=== PATIENT | female | born 1985 | race Caucasian/White ===

== ENCOUNTER 2016-11-17 09:29 | Emergency (ER) | payer MEDICAID, OTHER ==
[2016-11-17 09:47] VITALS: BP 127/77
--- NOTE | 2016-11-17 10:28 | UC ---
General HPI - HPI Summary HPI Summary: Pt has recently moved back into the area, needs medication refills to last until her PCP appt at [facility] on 12/01/16. Has appt with [facility] on 11/24/16. Hx of 2 inpatient stays with behavioral health, treating anxiety, PTSD, fibromyalgia, insomnia, eating d/o. - History of Current Complaint Chief Complaint: UCMedRefill Stated Complaint: med refill Time Seen by Provider: 11/17/16 10:06 Hx Obtained From: Patient Onset/Duration: Gradual Onset - no current new symptoms Timing: Constant Current Severity: None Associated Signs & Symptoms: Positive: Other - Allergy/Home Medications Allergies/Adverse Reactions: Allergies Allergy/AdvReac Type Severity Reaction Status Date / Time No Known Allergies Allergy Verified 11/17/16 09:47 Home Medications: Home Medications Sertraline* [Zoloft*] 11/17/16 [History] traZODone TAB* [Desyrel TAB*] 11/17/16 [History] PMH/Surg Hx/FS Hx/Imm Hx Psychological History Of: Reports: Anxiety, Depression, Post Traumatic Stress Disorder - Surgical History Surgical History: None - Family History Known Family History: Positive: None - reviewed & noncontributory - Social History Alcohol Use: Occasionally Substance Use Type: None Smoking Status (MU): Former Smoker Review of Systems Constitutional: Negative Skin: Negative Eyes: Negative ENT: Negative Respiratory: Negative Cardiovascular: Negative Gastrointestinal: Negative Genitourinary: Negative Motor: Negative Neurovascular: Negative Musculoskeletal: Negative Neurological: Negative Psychological: Negative All Other Systems Reviewed And Are Negative: Yes Physical Exam Triage Information Reviewed: Yes Appearance: Well-Appearing, No Pain Distress, Well-Nourished Vital Signs: Initial Vital Signs Temp 99.3 F 11/17/16 09:36 Pulse 99 11/17/16 09:36 Resp 16 11/17/16 09:36 BP 127/77 11/17/16 09:36 Pulse Ox 97 11/17/16 09:36 Vital Signs Reviewed: Yes Eye Exam: Normal Eyes: Positive: Conjunctiva Clear ENT Exam: Normal ENT: Positive: Normal ENT inspection, Hearing grossly normal, Pharynx normal, TMs normal Dental Exam: Normal Neck exam: Normal Neck: Positive: Supple, Nontender, No Lymphadenopathy Respiratory Exam: Normal Respiratory: Positive: Chest non-tender, Lungs clear, Normal breath sounds, No respiratory distress Cardiovascular Exam: Normal Cardiovascular: Positive: RRR, No Murmur Musculoskeletal Exam: Normal Neurological Exam: Normal Neurological: Positive: Alert Psychological Exam: Normal Skin Exam: Normal Course/Dx - Differential Dx - Multi-Symptom Provider Diagnoses: Medication refill Discharge - Discharge Plan Condition: Stable Disposition: HOME Prescriptions: Cyclobenzaprine TAB* [Flexeril 10 MG TAB*] 10 mg PO TID PRN #30 tab PRN Reason: pain Gabapentin CAP(*) [Neurontin 300 CAP(*)] 600 mg PO TID #84 cap Sertraline* [Zoloft*] 100 mg PO DAILY #14 tab busPIRone TAB* [Buspar TAB*] 5 mg PO TID #42 tab traZODone TAB* [Desyrel TAB*] 100 mg PO BEDTIME #14 tab Patient Education Materials: Medicine Refill (ED) Referrals: Marilyn Flores MD [Primary Care Provider] - Additional Instructions: Please make every effort to keep your appointments with [facility] on 11/24/16 and [facility] on 12/01/16.
== END 2016-11-17 10:31 | disposition home or self-care (01) ==
LOC: UCEAST 09:29
DX: F41.8 Other specified anxiety disorders (principal); F43.10 Post-traumatic stress disorder, unspecified; X58.XXXA Exposure to other specified factors, initial encounter; Y93.9 Activity, unspecified; Y92.9 Unspecified place or not applicable; Z76.0 Encounter for issue of repeat prescription; Z87.891 Personal history of nicotine dependence
CPT/HCPCS: 99212; G0463

== ENCOUNTER 2017-04-28 16:57 | Emergency (ER) | payer MEDICAID, OTHER ==
[2017-04-28] MEDS ORDERED: Ondansetron INJ* 2 MG/ML VIAL IV ONE (18:13)
[2017-04-28] MEDS ORDERED: Acetaminophen TAB* 325 MG ONE (19:01)
[2017-04-28] MEDS ORDERED: Acetaminophen TAB* 325 MG PO ONE (19:02)
[2017-04-28 19:04] LABS: Hematocrit 39 % (35-47); Hemoglobin 13.4 g/dl (12.0-16.0); Mean Corpuscular HGB Conc 34 g/dl (31-36); Mean Corpuscular Hemoglobin 31 pg (27-31); Mean Corpuscular Volume 90 fL (80-97); Mean Platelet Volume 8 um3 (7.4-10.4); Red Blood Count 4.36 10^6/ul (4.0-5.4); Red Cell Distribution Width 14 % (10.5-15); White Blood Count 9.9 10^3/ul (3.5-10.8)
[2017-04-28] MEDS: NS 0.9% 1000 ML* 2,000 ML IV ONE (19:04)
[2017-04-28 19:10] VITALS: BP 143/96
[2017-04-28 19:19] LABS: ALT 25 U/L (7-52); AST 37 U/L (13-39); Albumin 4.1 g/dL (3.2-5.2); Alkaline Phosphatase 67 U/L (34-104); Anion Gap 7 mmol/L (2-11); BUN/Creatinine Ratio 9.5 (8-20); Blood Urea Nitrogen 9 mg/dL (6-24); CO2 Carbon Dioxide 27 mmol/L (22-32); Calcium 8.6 mg/dL (8.6-10.3); Chloride 99 mmol/L (101-111); EGFR African American 88.2 (>60); EGFR Non-African American 68.6 (>60); Globulin 2.3 g/dL (2-4); Glucose 116 mg/dL (70-100); Lipase < 10 U/L (11.0-82.0); Potassium 3.4 mmol/L (3.5-5.0); Sodium 133 mmol/L (133-145); Total Protein 6.4 g/dL (6.4-8.9)
--- NOTE | 2017-04-28 19:43 | RAD ---
HISTORY: Fever COMPARISONS: None VIEWS: 2: Frontal and lateral views of the chest. FINDINGS: CARDIOMEDIASTINAL SILHOUETTE: The cardiomediastinal silhouette is normal. ROJAS: The rojas are normal. PLEURA: The costophrenic angles are sharp. No pleural abnormalities are noted. LUNG PARENCHYMA: The lungs are clear. ABDOMEN: The upper abdomen is clear. There is no subphrenic gas. BONES AND SOFT TISSUES: No bone or soft tissue abnormalities are noted. OTHER: None. IMPRESSION: NO ACTIVE CARDIOPULMONARY DISEASE.
[2017-04-28] MEDS ORDERED: Iohexol 300* (CONTRAST) 10 ML SDV IV ONE (20:27)
--- NOTE | 2017-04-28 21:28 | RAD ---
CLINICAL HISTORY: Abdominal pain COMPARISON: None TECHNIQUE: Multiple contiguous axial CT scans were obtained of the abdomen and pelvis after the administration of intravenous contrast. Coronal and sagittal multiplanar reformations are submitted for review. Oral contrast was not administered. Delayed images were obtained through the abdomen and pelvis. FINDINGS: LUNG BASES: The lung bases are clear. LIVER: The liver is at the upper limits of normal in size BILE DUCTS: There is no intrahepatic or extrahepatic biliary dilatation. GALLBLADDER: The gallbladder is normal, without pericholecystic inflammatory change. PANCREAS: The pancreas is normal, without mass or ductal dilatation. SPLEEN: Normal in size and appearance. UPPER GI TRACT: Evaluation of the gastrointestinal tract is limited by incomplete gastric distention. The upper GI tract is unremarkable. SMALL BOWEL AND MESENTERY: The small bowel is normal in contour, course, and caliber. There is no obstruction or dilatation. COLON: The colon is normal in contour, course, caliber. There is no pericolonic inflammatory change. There is a tubular, vermiform, hollow viscus that is blind ending, and originates from the cecum, consistent with a normal appendix. There is no periappendiceal inflammatory change. This is best seen on axial image 58. ADRENALS: Normal bilaterally. KIDNEYS: The kidneys are normal in shape, size, contour, and axis. There is no hydronephrosis or nephrolithiasis. BLADDER: The bladder is smooth in contour. PELVIC ORGANS: There is small amount of free fluid within the pelvis. There is a small cystic lesion of the anterior wall of the lower vagina measuring approximately 1 cm in size best seen on axial image 77 and sagittal image 54. AORTA: The aorta is normal. IVC: Unremarkable LYMPH NODES: There is no lymphadenopathy by size criteria. ABDOMINAL WALL: There is no evidence for abdominal wall hernia. BONES AND SOFT TISSUES: Unremarkable OTHER: None IMPRESSION: 1. THE LIVER IS AT THE UPPER LIMITS OF NORMAL IN SIZE. 2. THERE IS A SMALL CYSTIC LESION OF THE ANTERIOR WALL OF THE VAGINA, POSSIBLY A ANAMIKA'S DUCT CYST, THOUGH THE IMAGING APPEARANCE IS INDETERMINATE. RECOMMEND CORRELATION WITH DIRECT VISUALIZATION. 3. SMALL AMOUNT OF FREE FLUID WITHIN THE PELVIS. THIS MAY BE PHYSIOLOGIC WITHIN A REPRODUCTIVE AGE FEMALE.
[2017-04-28] MEDS ORDERED: Cephalexin CAP* 500 MG PO ONE (21:34)
--- NOTE | 2017-04-28 21:42 | ED ---
Ellen Younger Edward, scribed for Dakota Monique on 04/28/17 at 1748 . Complex/Multi-Sys Presentation - HPI Summary HPI Summary: 31 y/o female presents to ED c/o sudden onset N/V/D at 07:00 this morning. Pt has vomited multiple times today. The sx are not aggravated or alleviated by anything. Associated sx: ABD pain rated 9/10 at triage. She also c/o an abrasion on her R ring finger. PMHx fibromyalgia. Pt vomited on examination. - History Of Current Complaint Chief Complaint: EDNauseaVomitDiarrh Time Seen by Provider: 04/28/17 17:44 - Allergies/Home Medications Allergies/Adverse Reactions: Allergies Allergy/AdvReac Type Severity Reaction Status Date / Time No Known Allergies Allergy Verified 04/28/17 17:02 PMH/Surg Hx/FS Hx/Imm Hx Previously Healthy: No Psychiatric History: Reports: Hx Anxiety, Hx Depression, Hx Panic Disorder, Hx Post Traumatic Stress Disorder - Cancer History Cancer Type, Location and Year: PTSD, panic disorder, anxiety, anorexia Infectious Disease History: Denies: Traveled Outside the [place] in Last 30 Days - Family History Known Family History: Negative: Cardiac Disease, Hypertension, Diabetes - Social History Alcohol Use: Occasionally Hx Substance Use: No Substance Use Type: Reports: None Hx Tobacco Use: Yes Smoking Status (MU): Former Smoker Review of Systems Constitutional: Negative Eyes: Negative ENT: Negative Cardiovascular: Negative Respiratory: Negative Positive: Abdominal Pain, Vomiting, Diarrhea, Nausea Genitourinary: Negative Musculoskeletal: Negative Skin: Negative Neurological: Negative Psychological: Normal All Other Systems Reviewed And Are Negative: Yes Physical Exam Triage Information Reviewed: Yes Vital Signs On Initial Exam: Initial Vitals Temp Pulse Resp BP Pulse Ox 99.6 F 138 20 93/63 98 04/28/17 17:02 04/28/17 17:02 04/28/17 17:02 04/28/17 17:02 04/28/17 17:02 Vital Signs Reviewed: Yes Appearance: Positive: Well-Appearing, No Pain Distress Skin: Positive: Warm, Skin Color Reflects Adequate Perfusion, Dry, Other - 1 cm healing laceration @ dorsum of R hand Head/Face: Positive: Normal Head/Face Inspection Eyes: Positive: EOMI, RYLAN ENT: Positive: Normal ENT inspection Neck: Positive: Supple, Nontender Respiratory/Lung Sounds: Positive: Clear to Auscultation, Breath Sounds Present Cardiovascular: Positive: RRR, Pulses are Symmetrical in both Upper and Lower Extremities Abdomen Description: Positive: Nontender, Soft Bowel Sounds: Positive: Present Musculoskeletal: Positive: Normal, Strength/ROM Intact Neurological: Positive: Normal, Sensory/Motor Intact, Alert, Oriented to Person Place, Time Diagnostics - Vital Signs Vital Signs Temp Pulse Resp BP Pulse Ox 04/28/17 17:02 99.6 F 138 20 93/63 98 - Laboratory Result Diagrams: 04/28/17 18:57 04/28/17 18:57 Lab Statement: Any lab studies that have been ordered have been reviewed, and results considered in the medical decision making process. - Radiology CXR Xray Interpretation: No Acute Changes - NO ACTIVE CARDIOPULMONARY DISEASE. ED PHYSICIAN AGREEABLE Radiology Interpretation Completed By: Radiologist - CT ABD/PEL CT CT Interpretation: Positive (See Comments) - 1. THE LIVER IS AT THE UPPER LIMITS OF NORMAL IN SIZE. 2. THERE IS A SMALL CYSTIC LESION OF THE ANTERIOR WALL OF THE VAGINA, POSSIBLY A ANAMIKA'S DUCT CYST, THOUGH THE IMAGING APPEARANCE IS INDETERMINATE. RECOMMEND CORRELATION WITH DIRECT VISUALIZATION. 3. SMALL AMOUNT OF FREE FLUID WITHIN THE PELVIS. THIS MAY BE PHYSIOLOGIC WITHIN A REPRODUCTIVE AGE FEMALE. ED PHYSICIAN AGREEABLE. CT Interpretation Completed By: Radiologist - EKG 1 EKG Interpretation: 19:42 - Sinus Tachycardia @ 120 bpm. Complex Multi-Symp Course/Dx Assessment/Plan: 31 y/o female presents to ED c/o sudden onset N/V/D at 07:00 this morning. Pt has vomited multiple times today. The sx are not aggravated or alleviated by anything. Associated sx: ABD pain rated 9/10 at triage. She also c/o an abrasion on her R ring finger. PMHx fibromyalgia. Pt vomited on examination. EKG 19:42 - Sinus Tachycardia @ 120 bpm. CXR SHOWS NO ACTIVE CARDIOPULMONARY DISEASE. ABD/PEL CT SHOWS 1. THE LIVER IS AT THE UPPER LIMITS OF NORMAL IN SIZE. 2. THERE IS A SMALL CYSTIC LESION OF THE ANTERIOR WALL OF THE VAGINA, POSSIBLY A ANAMIKA'S DUCT CYST, THOUGH THE IMAGING APPEARANCE IS INDETERMINATE. RECOMMEND CORRELATION WITH DIRECT VISUALIZATION. 3. SMALL AMOUNT OF FREE FLUID WITHIN THE PELVIS. THIS MAY BE PHYSIOLOGIC WITHIN A REPRODUCTIVE AGE FEMALE. Pt will be d/c home. - Diagnoses Provider Diagnoses: Gastroenteritis, Cellulitis of right hand Discharge - Discharge Plan Condition: Stable Disposition: HOME Prescriptions: Cephalexin [Keflex 750 MG] 750 mg PO BID 7 Days Patient Education Materials: Cellulitis (ED), Gastroenteritis (ED) Referrals: Marilyn Flores MD [Primary Care Provider] - 3 Days (Please f/u in 3 days) Additional Instructions: Please take Tylenol 325 mg 3x a day for the next 5 days as needed for your fever The documentation as recorded by the Ellen jesus Edward accurately reflects the service I personally performed and the decisions made by , Dakota Monique.
--- NOTE | 2017-05-01 13:02 | PN ---
Progress Note - Progress Note Date of Service: 04/28/17 Note: blood cultures grew strep pyogenes. placed on keflex at d/c. no further complication. no further action required
--- NOTE | 2017-05-02 09:16 | ED ---
Progress - Progress Note Progress Note: Pt's blood cx's reveal strep pyogenes - she was started on keflex which appears to be effective however given her clinical picture at the time (febrile with tachycardia with a left shift) would recommend repeat evaluation as this could have been early signs of sepsis. Called pt who was unavailable for conversation hwoever her person to notify, Johnny, was contacted. He said she's feeling better than she did the other day but has not further details to offer as she's not with him at this time. Explained she needs to be re-evaluated here and he suggests she may f/u w/ her PCP in [place] as that's where she is now. Strongly encouraged re-eval at a hospital but if PCP is only option, please call with PCP 's name so we can forward results as she has a local doc listed. Johnny voices understanding the potential severity of this condition and will relay information to pt today to seek medical evaluation. He also reports he will contact us w/ PCP's name if she chooses to seek attention there. Advised if worse, to go to nearest ED. Course/Dx - Diagnoses Provider Diagnoses: Gastroenteritis, Cellulitis of right hand
== END 2017-04-28 21:55 | disposition home or self-care (01) ==
LOC: ED 16:57
DX: K52.9 Noninfective gastroenteritis and colitis, unspecified (principal); L03.113 Cellulitis of right upper limb
CPT/HCPCS: 36415; 71020; 74177; 80053; 83690; 84484; 84702; 85025; 85610; 85730; 87040; 87077; 87186; 87205; 93005; 96374; 99283; A9270-GY; J2405; Q9967

== ENCOUNTER 2017-11-16 23:08 | Emergency (ER) | payer OTHER ==
[2017-11-17 00:29] LABS: Urine Appearance Clear; Urine Blood 1+ (Negative); Urine Color Straw; Urine Ketones Negative (Negative); Urine Protein Negative (Negative); Urine Specific Gravity 1.003 (1.010-1.030); Urine Urobilinogen Negative (Negative)
--- NOTE | 2017-11-17 00:30 | ED ---
Psychiatric Complaint - HPI Summary HPI Summary: Pt brought in by [employer] for self harm. Pt's fiance called police who brought her in with hand cuffs in place as she resisted cooperative travel to the hospital with the police. She was loud, yelling, angry and upset upon arrival. Police report she smelled like ETOH and admitted to taking mushrooms earlier and possibly marijuana as well. Pt denied ETOH and marijuana but confirmed eating mushrooms. After multiple conversation, she eventually revealed she was upset tonight and cut her Rt wrist with a razor from the bathroom however she did not intend to kill herself for if she had, she would have done it. Reports h/o 3 previous attempts at suicide and states "I have alot of mental issues". She denies any injuries tonight and does not have pain anywhere to report. Police confirm there were no injuries on the way here to report. Regarding medical issues, she admit to fibromyalgia which she treats with gabapentin and flexeril. She lives with her fiance, Johnny, and another man, Nathan. She states they're all "weirdos" and take care of each other. 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 Nathan has a tattoo on his face and his brother is a user interface artist who is currently in rehab in another state. She does not share any other information about family. Would like us to contact Johnny however is phone # states "the caller may not be reached at this time". She does not recall anyone else's phone number in an effort to call them. She reports she just moved here from [place] and she knows her address. She's been here to [facility] once before. - History Of Current Complaint Chief Complaint: EDMentalHealth Time Seen by Provider: 11/16/17 23:15 Hx Obtained From: Patient Hx Last Menstrual Period: now - Allergies/Home Medications Allergies/Adverse Reactions: Allergies Allergy/AdvReac Type Severity Reaction Status Date / Time No Known Allergies Allergy Verified 04/28/17 17:02 Home Medications: Home Medications Cyclobenzaprine TAB* [Flexeril 10 MG TAB*] 10 mg PO TID PRN 11/17/17 [History Confirmed 11/17/17] Gabapentin CAP(*) [Neurontin 300 CAP(*)] 600 mg PO TID 11/17/17 [History Confirmed 11/17/17] Sertraline* [Zoloft*] 200 mg PO DAILY 11/17/17 [History Confirmed 11/17/17] busPIRone TAB* [Buspar TAB *] 15 mg PO TID 11/17/17 [History Confirmed 11/17/17] risperiDONE TAB* [RisperDAL*] 1 mg PO BID 11/17/17 [History Confirmed 11/17/17] traZODone TAB* [Desyrel TAB*] 150 mg PO BEDTIME 11/17/17 [History Confirmed ] PMH/Surg Hx/FS Hx/Imm Hx Previously Healthy: Yes - based on limited intake as pt is intoxicated Musculoskeletal History: Reports: Hx Fibromyalgia - gabapentin, flexeril Psychiatric History: Reports: Hx Anxiety, Hx Depression, Hx Panic Disorder, Hx Post Traumatic Stress Disorder, Hx Suicide Attempt - 3 x , Other Psychiatric Issues/Disorders - "I've been institutionalized" - Cancer History Cancer Type, Location and Year: PTSD, panic disorder, anxiety, anorexia - Immunization History Immunizations Up to Date: Unable to Obtain/Confirm Infectious Disease History: Unable to Obtain/Confirm Infectious Disease History: Denies: Traveled Outside the [place] in Last 30 Days - Family History Known Family History: Positive: Unknown Negative: Cardiac Disease, Hypertension, Diabetes - Social History Lives: Dormitory/Roommates - allison Turner and a friend Nathan Alcohol Use: Occasionally Hx Substance Use: No Substance Use Type: Reports: Other Substance Use Comment - Amount & Last Used: mushrooms Hx Tobacco Use: Yes Smoking Status (MU): Former Smoker Review of Systems - ROS Summary Review of Systems Summary: Level 5 caveat - under the influence, agitated and partially cooperative Constitutional: Negative Eyes: Negative ENT: Negative Cardiovascular: Negative Respiratory: Negative Gastrointestinal: Negative Positive: no symptoms reported Musculoskeletal: Negative Skin: Other - Rt wrist lac's Neurological: Negative Positive: Anxious - as above All Other Systems Reviewed And Are Negative: Yes Physical Exam Triage Information Reviewed: Yes Vital Signs On Initial Exam: Initial Vitals Temp Pulse Resp BP Pulse Ox 98.4 F 101 16 116/81 97 11/16/17 23:15 03/16/18 23:15 11/16/17 23:15 11/16/17 23:15 11/16/17 23:15 Vital Signs Reviewed: Yes Appearance: Positive: Well-Nourished - angry, agitated, intermittently cooperative/tearful Skin: Positive: Warm, Skin Color Reflects Adequate Perfusion - mulitple superficial abrasions over Rt ventral wrist - no repair required - no active bleeding; no other signs of trauma Head/Face: Positive: Normal Head/Face Inspection Eyes: Positive: RYLAN, Other: - sclera injected ENT: Positive: Hearing grossly normal, Pharynx normal - mucosa moist Dental: Positive: Gross Decay/Caries @ Neck: Positive: Supple, Nontender - FROM w/o restriction Respiratory/Lung Sounds: Positive: Clear to Auscultation, Breath Sounds Present Cardiovascular: Positive: Normal, RRR, Pulses are Symmetrical in both Upper and Lower Extremities Abdomen Description: Positive: Nontender, No Organomegaly, Soft Bowel Sounds: Positive: Present Musculoskeletal: Positive: Normal, Strength/ROM Intact Neurological: Positive: CN Intact II-III, Other - deliberate speech; may be hypersensitive 2ndry to intoxicants on board -appears mostly coordinated Psychiatric: Positive: Anxious - labile - yelling, angry and threatening in moment, crying in another - eventually cooperates to be calm and after some time , falls asleep Diagnostics - Vital Signs Vital Signs Temp Pulse Resp BP Pulse Ox 11/16/17 23:15 98.4 F 101 16 116/81 97 - Laboratory Result Diagrams: 11/17/17 01:07 11/17/17 01:07 Lab Statement: Any lab studies that have been ordered have been reviewed, and results considered in the medical decision making process. Course/Dx - Course Course Of Treatment: Pt presents by police at the request of her fiance - not acting like herself tonight and is under the influence of mushrooms and ETOH ( possibly marijuana). She attempted to cut her wrist tonight but only succeeded w / superficial abrasions. She reports she was not trying to kill herself - if she had been, she could've done it. SI w/ h/o mood d/o - to be determined if current SI is drug induced or truly present when sober. Pending ETOH clearance and MHE later in the morning. Signed out to Dr. Goldstein. - Differential Dx/Clinical Impression Differential Diagnosis/HQI/PQRI: Positive: Alcohol Intoxication, Suicidal Gesture Provider Diagnosis: Alcohol intoxication, Suicide gesture Discharge - Sign-Out/Discharge Documenting (check all that apply): Sign-Out Patient Signing out patient TO: Rene Goldstein - Discharge Plan Condition: Guarded Disposition: HOME Forms: *Work Release Referrals: Marilyn Flores MD [Medical Doctor] - - Billing Disposition and Condition Condition: GUARDED Disposition: HOME
[2017-11-17 01:15] LABS: ABS Basophils 0 10^3/ul (0-0.2); ABS Eosinophils 0.2 10^3/ul (0-0.6); ABS Lymphocytes 2.7 10^3/ul (1.0-4.8); ABS Monocytes 0.3 10^3/ul (0-0.8); ABS Neutrophils 3.4 10^3/ul (1.5-7.7); ABS Nucleated RBC 0 10^3/ul; Eosinophil % 3.1 % (0-6); Hematocrit 40 % (35-47); Hemoglobin 13.5 g/dl (12.0-16.0); Mean Corpuscular HGB Conc 34 g/dl (31-36); Mean Corpuscular Hemoglobin 32 pg (27-31); Mean Corpuscular Volume 94 fL (80-97); Mean Platelet Volume 8 um3 (7.4-10.4); Nucleated Red Blood Cells % 0.1; Platelet Count 220 10^3/ul (150-450); Red Blood Count 4.25 10^6/ul (4.0-5.4); Red Cell Distribution Width 15 % (10.5-15); White Blood Count 6.7 10^3/ul (3.5-10.8)
[2017-11-17 01:31] LABS: EGFR Non-African American 73.5 (>60)
[2017-11-17 11:50] VITALS: BP 125/88
--- NOTE | 2017-11-17 16:03 | ED ---
INeto Sixian, scribed for Rene Goldstein MD on 11/17/17 at 0640 . Progress - Progress Note Progress Note: Pt is intoxicated and reports SI. Patient is signed out to Dr. Garland, pending disposition, awaiting MHE. Pt with no acute changes overnight. Pt hemodynamically stable. pt resting in bed. The documentation as recorded by the Neto jesus Sixian accurately reflects the service I personally performed and the decisions made by , Rene Goldstein MD.
== END 2017-11-17 11:50 | disposition home or self-care (01) ==
LOC: ED 23:08
DX: R45.851 Suicidal ideations (principal); F10.129 Alcohol abuse with intoxication, unspecified; Z87.891 Personal history of nicotine dependence
CPT/HCPCS: 36415; 80053; 80307; 80320; 80329; 81003; 81015; 84443; 84702; 85025; 99285; G0480

== ENCOUNTER 2019-10-03 16:24 | Emergency (ER) | payer OTHER ==
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
[2019-10-03 18:26] VITALS: BP 136/84
== END 2019-10-03 18:25 | disposition home or self-care (01) ==
LOC: ED 16:24
DX: R51 Headache (principal); M25.572 Pain in left ankle and joints of left foot; M25.532 Pain in left wrist; R11.0 Nausea; S60.222A Contusion of left hand, initial encounter; Y04.2XXA Assault by strike against or bumped into by another person, initial encounter; Y92.9 Unspecified place or not applicable; Y07.9 Unspecified perpetrator of maltreatment and neglect; M79.7 Fibromyalgia; F41.0 Panic disorder [episodic paroxysmal anxiety]; Z87.891 Personal history of nicotine dependence
CPT/HCPCS: 99281